=== PATIENT | female | born 1995 | race Caucasian/White ===

== ENCOUNTER 2017-01-27 11:52 | Emergency (ER) | payer OTHER ==
[~2017-01-27] VITALS: Ht 170.2 cm; Wt 85.0 kg
[2017-01-27 11:55] VITALS: BP 133/84
== END 2017-01-27 13:43 | disposition home or self-care (01) ==
LOC: ED 12:52
DX: R39.15 Urgency of urination (principal); R35.0 Frequency of micturition; N30.00 Acute cystitis without hematuria
CPT/HCPCS: 81001; 87086; 99284